=== PATIENT | male | born 1970 | race American Indian/Alaskan Native ===

== ENCOUNTER 2022-05-31 05:51 | Emergency (ER) | payer OTHER ==
[2022-05-31 15:11] VITALS: BP 149/94
--- NOTE | 2022-05-31 15:12 | Emergency Department Report ---
ED ENT HPI - General Chief complaint: Dental/Oral Stated complaint: RT SIDE FACIAL SWELLING/MOUTH PN Source: patient Mode of arrival: Ambulatory Limitations: No Limitations - History of Present Illness Initial comments: 51-year-old male presents to the ED complaining toothache x4 days. Patient states that he need dental work done and has been unable to get a dentist. Patient has mild edema noted to his right upper jaw area. He states pain is currently 8 out of 10. Patient is alert and orientedx3 . Patient denies any headache . He denies any numbness or tingling. Patient denies any difficult swallowing. No acute distress noted .no ill appearance noted MD complaint: tooth pain Onset/Timin Severity: moderate Severity scale (0 -10): 8 Quality: aching Consistency: intermittent Improves with: none Worsens with: none Context- Dental: history of dental caries - Related Data Previous Rx's Medication Instructions Recorded Last Taken Type Clindamycin [Clindamycin CAP] 600 mg PO BID 10 Days #20 capsule 05/31/22 Unknown Rx traMADoL [Ultram] 50 mg PO Q6HR PRN 3 Days #12 tablet 05/31/22 Unknown Rx Allergies Allergy/AdvReac Type Severity Reaction Status Date / Time Penicillins Allergy Hives Verified 05/31/22 05:56 ED Dental HPI - General Chief complaint: Dental/Oral Stated complaint: RT SIDE FACIAL SWELLING/MOUTH PN Source: patient Mode of arrival: Ambulatory Limitations: No Limitations - Related Data Previous Rx's Medication Instructions Recorded Last Taken Type Clindamycin [Clindamycin CAP] 600 mg PO BID 10 Days #20 capsule 05/31/22 Unknown Rx traMADoL [Ultram] 50 mg PO Q6HR PRN 3 Days #12 tablet 05/31/22 Unknown Rx Allergies Allergy/AdvReac Type Severity Reaction Status Date / Time Penicillins Allergy Hives Verified 05/31/22 05:56 ED Review of Systems ROS: Stated complaint: RT SIDE FACIAL SWELLING/MOUTH PN Other details as noted in HPI Constitutional: denies: chills, fever Eyes: denies: eye pain, eye discharge, vision change ENT: denies: ear pain, throat pain Respiratory: denies: cough, shortness of breath, wheezing Cardiovascular: denies: chest pain, palpitations Endocrine: no symptoms reported Gastrointestinal: denies: abdominal pain, nausea, diarrhea Genitourinary: denies: urgency, dysuria Musculoskeletal: denies: back pain, joint swelling, arthralgia Skin: denies: rash, lesions Neurological: denies: headache, weakness, paresthesias Psychiatric: denies: anxiety, depression Hematological/Lymphatic: denies: easy bleeding, easy bruising ED Past Medical Hx - Past Medical History Previous Medical History?: No - Surgical History Past Surgical History?: No - Social History Smoking Status: Never Smoker Substance Use Type: None - Medications Home Medications: Home Medications Medication Instructions Recorded Confirmed Last Taken Type Clindamycin [Clindamycin CAP] 600 mg PO BID 10 Days #20 capsule 05/31/22 Unknown Rx traMADoL [Ultram] 50 mg PO Q6HR PRN 3 Days #12 tablet 05/31/22 Unknown Rx ED Physical Exam - General Limitations: No Limitations General appearance: alert, in no apparent distress - Head Head exam: Present: atraumatic, normocephalic - Eye Eye exam: Present: normal appearance - ENT ENT exam: Present: mucous membranes moist - Neck Neck exam: Present: normal inspection - Respiratory Respiratory exam: Present: normal lung sounds bilaterally. Absent: respiratory distress - Cardiovascular Cardiovascular Exam: Present: regular rate, normal rhythm. Absent: systolic murmur, diastolic murmur, rubs, gallop - GI/Abdominal GI/Abdominal exam: Present: soft, normal bowel sounds - Rectal Rectal exam: Present: deferred - Extremities Exam Extremities exam: Present: normal inspection - Back Exam Back exam: Present: normal inspection - Neurological Exam Neurological exam: Present: alert, oriented X3 - Psychiatric Psychiatric exam: Present: normal affect, normal mood - Skin Skin exam: Present: warm, dry, intact, normal color. Absent: rash ED Course Vital Signs 05/31/22 05/31/22 05:56 15:10 Temperature 99.5 F 98 F Pulse Rate 82 81 Respiratory 18 20 Rate Blood Pressure 167/97 Blood Pressure 149/94 [Right] O2 Sat by Pulse 98 100 Oximetry ED Medical Decision Making - Medical Decision Making 51-year-old male presents to the ED complaining toothache x4 days. Patient states he need some dental work done and has been unable to get a dentist. Patient has mild edema noted to his right upper jaw area. He states pain is currently 8 out of 10. Patient is alert and orientedx3 . Patient denies any headache . He denies any numbness or tingling. Patient denies any difficult swallowing. No acute distress noted .no ill appearance noted. Physical examination patient has multiple dental cavities noted. Patient has tenderness noted to his right upper gum area' Rechecked the patient is resting quietly quietly and comfortable and feeling better. I discussed the results of diagnostic study, my clinical impression and the plan for further treatment with the patient. Patient agrees with plan and discharge at this present time. All question addressed. I have given the patient instruction regarding a diagnosis ,expectation ,follow- up and return precaution. I explained to the patient that emergent condition may arise and to return to the ED for new worsen and any new persisting condition. I have explained the importance of following up with the primary care physician or referral physician listed below has instructed. The patient verbalized understanding of discharge instruction. Critical care attestation.: If time is entered above; I have spent that time in minutes in the direct care of this critically ill patient, excluding procedure time. ED Disposition Clinical Impression: Pain due to dental caries Disposition: 01 HOME / SELF CARE / HOMELESS Is pt being admited?: No Does the pt Need Aspirin: No Condition: Stable Instructions: Preventive Dental Care, Adult Additional Instructions: Take medication as prescribed Follow-up with dentist of your choice from the list provided Prescriptions: Clindamycin [Clindamycin CAP] 600 mg PO BID 10 Days #20 capsule traMADoL [Ultram] 50 mg PO Q6HR PRN 3 Days #12 tablet PRN Reason: Pain Referrals: [facility] [Outside] - 3-5 Days Forms: Work/School Release Form(ED) Time of Disposition: 15:13
== END 2022-05-31 15:50 | disposition home or self-care (01) ==
LOC: ED 05:51
DX: K02.9 Dental caries, unspecified (principal); Z88.0 Allergy status to penicillin
CPT/HCPCS: 99282